=== PATIENT | female | born 1945 | race Caucasian/White ===

== ENCOUNTER 2018-09-09 08:58 | Inpatient (IN) | payer OTHER, BC ==
[~2018-09-09] VITALS: Ht 157.5 cm; Wt 86.8 kg
[2018-09-09 09:59] LABS: BASOPHIL % 0.6 % (0-2); PLATELET COUNT 375 x10^3mcL (130-400); RED CELL DISTRIBUTION WIDTH 12.7 % (11.5-14.5)
[2018-09-09 10:14] LABS: CARBON DIOXIDE 25.1 mmol/L (21-32); CHLORIDE SERUM 105 mmol/L (98-107); CREATININE SERUM 0.9 mg/dL (0.6-1.0); GLUCOSE SERUM 154 mg/dL (74-106); POTASSIUM SERUM 3.4 mmol/L (3.5-5.1); SODIUM SERUM 140 mmol/L (136-145)
[2018-09-09 10:19] LABS: ALKALINE PHOSPHATASE 117 U/L (46-116); ALT/SGPT 53 U/L (14-59); AST/SGOT 24 U/L (15-37); BILIRUBIN TOTAL 0.4 mg/dL (0.20-1.00); LIPASE 213 IU/L (73-393)
[2018-09-09 10:20] LABS: ALBUMIN 3.3 g/dL (3.4-5.0)
[2018-09-09 13:18] LABS: CHOLESTEROL/HDL RATIO 3.9; MAGNESIUM 2.2 mg/dL (1.8-2.4); PHOSPHOROUS 3.1 mg/dL (2.5-4.9)
[2018-09-09] MEDS ORDERED: TRIAMTERENE AND1 TA1 PO (13:30)
[2018-09-09] MEDS ORDERED: LOVASTATIN40 MG PO (13:30)
[2018-09-09] MEDS ORDERED: ATENOLOL50 MG PO (13:30)
[2018-09-09] MEDS ORDERED: LOT10 PO (13:30)
[2018-09-09] MEDS ORDERED: ASPIR 8181 MG PO (13:31)
[2018-09-09] MEDS ORDERED: VITAMIN D32000 I2 PO (13:31)
[2018-09-09 14:03] LABS: microscopic required? NO
[2018-09-09 14:09] VITALS: BP 151/96
[2018-09-09 14:23] LABS: urine erythrocyte NEGATIVE (NEGATIVE)
[2018-09-09 17:15] VITALS: Ht 157.5 cm; Wt 86.8 kg
[2018-09-09 19:50] VITALS: BP 136/70
[2018-09-09 21:31] VITALS: BP 147/98
[2018-09-10 05:46] VITALS: BP 145/95
[2018-09-10 07:06] LABS: BASOPHIL % 0.7 % (0-2); PLATELET COUNT 367 x10^3mcL (130-400); RED CELL DISTRIBUTION WIDTH 12.6 % (11.5-14.5)
[2018-09-10 07:26] LABS: CALCIUM 8.5 mg/dL (8.5-10.1); CARBON DIOXIDE 24.7 mmol/L (21-32); CHLORIDE SERUM 101 mmol/L (98-107); CREATININE SERUM 0.9 mg/dL (0.6-1.0); GLUCOSE SERUM 132 mg/dL (74-106); MAGNESIUM 2.2 mg/dL (1.8-2.4); PHOSPHOROUS 3.4 mg/dL (2.5-4.9); POTASSIUM SERUM 3.9 mmol/L (3.5-5.1); SODIUM SERUM 134 mmol/L (136-145)
[2018-09-10 09:16] VITALS: BP 140/95
[2018-09-10 13:07] VITALS: BP 119/90
[2018-09-10 17:10] VITALS: BP 137/79
[2018-09-10 22:25] VITALS: BP 125/83
[2018-09-11 05:21] VITALS: BP 113/71
[2018-09-11 09:13] VITALS: BP 99/75
[2018-09-11 12:42] VITALS: BP 98/67
[2018-09-11 14:04] LABS: BASOPHIL % 0.5 % (0-2); PLATELET COUNT 369 x10^3mcL (130-400); RED CELL DISTRIBUTION WIDTH 12.9 % (11.5-14.5)
[2018-09-11 14:15] LABS: CALCIUM 9.2 mg/dL (8.5-10.1); CARBON DIOXIDE 24.3 mmol/L (21-32); CHLORIDE SERUM 101 mmol/L (98-107); GLUCOSE SERUM 155 mg/dL (74-106); MAGNESIUM 1.9 mg/dL (1.8-2.4); PHOSPHOROUS 3.7 mg/dL (2.5-4.9); SODIUM SERUM 136 mmol/L (136-145)
[2018-09-11 16:46] VITALS: BP 106/66
[2018-09-11 17:00] VITALS: BP 118/68
[2018-09-11 20:50] VITALS: BP 101/62
[2018-09-12 05:32] VITALS: BP 111/71
[2018-09-12 07:26] LABS: CALCIUM 9.6 mg/dL (8.5-10.1); CARBON DIOXIDE 26.5 mmol/L (21-32); CHLORIDE SERUM 104 mmol/L (98-107); GLUCOSE SERUM 105 mg/dL (74-106); MAGNESIUM 2.1 mg/dL (1.8-2.4); PHOSPHOROUS 3.5 mg/dL (2.5-4.9); POTASSIUM SERUM 3.7 mmol/L (3.5-5.1); SODIUM SERUM 139 mmol/L (136-145)
[2018-09-12 07:45] LABS: BASOPHIL % 0.9 % (0-2); PLATELET COUNT 328 x10^3mcL (130-400); RED CELL DISTRIBUTION WIDTH 13.1 % (11.5-14.5)
[2018-09-12 08:08] VITALS: BP 117/57
[2018-09-12 13:00] VITALS: BP 129/77
[2018-09-12 18:12] VITALS: BP 113/62
[2018-09-12 22:09] VITALS: BP 113/74
[2018-09-13 05:22] VITALS: BP 114/64
[2018-09-13 07:02] LABS: BASOPHIL % 0.8 % (0-2); PLATELET COUNT 341 x10^3mcL (130-400)
[2018-09-13 07:11] LABS: CALCIUM 8.9 mg/dL (8.5-10.1); CARBON DIOXIDE 28.8 mmol/L (21-32); CHLORIDE SERUM 104 mmol/L (98-107); CREATININE SERUM 0.9 mg/dL (0.6-1.0); GLUCOSE SERUM 109 mg/dL (74-106); MAGNESIUM 2.1 mg/dL (1.8-2.4); PHOSPHOROUS 3.8 mg/dL (2.5-4.9); POTASSIUM SERUM 3.7 mmol/L (3.5-5.1); SODIUM SERUM 140 mmol/L (136-145)
[2018-09-13 09:47] VITALS: BP 123/63
[2018-09-13 13:23] VITALS: BP 123/77
[2018-09-13 17:16] VITALS: BP 123/78
[2018-09-13 20:50] VITALS: BP 124/73
[2018-09-14 05:42] VITALS: BP 131/66
[2018-09-14] MEDS ORDERED: LIPITOR80 MG PO (06:53)
[2018-09-14] MEDS ORDERED: NIT0.4 SL (06:54)
[2018-09-14] MEDS ORDERED: LOP50 PO (06:54)
[2018-09-14 09:28] VITALS: BP 131/66
[2018-09-14 10:06] VITALS: BP 120/68
== END 2018-09-14 12:09 | disposition short-term general hospital (02) | DRG 152 ==
LOC: ED 08:58 → DU 12:33
PROVIDERS: Emergency Medicine; Internal Medicine; ADMIT Family Medicine
DX: J11.1 Influenza due to unidentified influenza virus with other respiratory manifestations (principal); I21.4 Non-ST elevation (NSTEMI) myocardial infarction; D68.69 Other thrombophilia; I48.91 Unspecified atrial fibrillation; E11.65 Type 2 diabetes mellitus with hyperglycemia; I10 Essential (primary) hypertension; E78.5 Hyperlipidemia, unspecified; Z68.35 Body mass index [BMI] 35.0-35.9, adult; Z87.891 Personal history of nicotine dependence
CPT/HCPCS: 82962; 83880; 85378; 87804; 90658; J1650; J3010; J3475; J3490; J7040; Q0092